=== PATIENT | female | born 1985 | race African-American/Black ===

== ENCOUNTER 2019-06-30 11:34 | Inpatient (IN) | payer OTHER ==
[2019-06-30 12:27] VITALS: BMI 21.2
--- NOTE | 2019-06-30 13:05 | HP ---
COWS - Scale Resting Pulse: 4= CT > 121 Sweatin=Flushed/Facial Moisture Restless Observation: 1= Difficult to Sit Still Pupil Size: 1= Pupils >than Normal Bone or Joint Aches: 2= Severe Diffuse Aches Runny Nose/ Eye Tearin= Nasal Congestion GI Upset > 30mins: 1= Stomach Cramp Tremor Observation: 1= Tremor [place], Not Seen Yawning Observation: 1= 1-2x During Session Anxiety or Irritability: 1=Feels Anxious/Irritable Goose Flesh Skin: 3=Piloerection COWS Score: 18 CIWA Score - Admission Criteria OASAS Guidelines: Admission for Medically Managed Detox: Requires at least one of the followin. CIWA greater than 12 2. Seizures within the past 24 hours 3. Delirium tremens within the past 24 hours 4. Hallucinations within the past 24 hours 5. Acute intervention needed for co occurring medical disorder 6. Acute intervention needed for co occurring psychiatric disorder 7. Severe withdrawal that cannot be handled at a lower level of care (continued vomiting, continued diarrhea, abnormal vital signs) requiring intravenous medication and/or fluids 8. Admitting History and Physical - Admission Chief Complaint: " I want to get my life back together again." History of Present Illness: 33 year old black female with opioid dependence with withdrawals. She was last here in 2013. She is using heroin intranasally up to $100 per day , last used yesterday. She also uses cocaine 5 times daily last used yesterday. She also uses marijuana 3 blunts per day, last used yesterday. PMH:None Psurg:None Psych: History of Depression and Schizophrenia History Source: Patient Limitations to Obtaining History: Intoxication - Past Medical History Psych: Yes: Depression, Schizophrenia - Past Surgical History Past Surgical History: Yes: None - Smoking History Smoking history: Current every day smoker Have you smoked in the past 12 months: Yes Aproximately how many cigarettes per day: 3 - Alcohol/Substance Use Hx Alcohol Use: Yes Admission ROS [facility] Allergies/Adverse Reactions: Allergies Allergy/AdvReac Type Severity Reaction Status Date / Time No Known Drug Allergies Allergy Verified 06/30/19 11:50 egg AdvReac Intermediate Nausea Verified 06/30/19 11:50 milk AdvReac Intermediate Nausea Verified 06/30/19 11:50 History of Present Illness: 33 year old black female with opioid dependence with withdrawals. She was last here in 2013. She is using heroin intranasally up to $100 per day , last used yesterday. She also uses cocaine 5 times daily last used yesterday. She also uses marijuana 3 blunts per day, last used yesterday. PMH:None Psurg:None Psych: History of Depression and Schizophrenia Exam Limitations: No Limitations - Ebola screening Have you traveled outside of the country in the last 21 days: No Have you had contact with anyone from an Ebola affected area: No Do you have a fever: No Patient History - Patient Medical History Hx Anemia: No Hx Asthma: No Hx Chronic Obstructive Pulmonary Disease (COPD): No Hx Cancer: No Hx Cardiac Disorders: No Hx Congestive Heart Failure: No Hx Hypertension: No Hx Hypercholesterolemia: No Hx Pacemaker: No HX Cerebrovascular Accident: No Hx Seizures: No Hx Dementia: No Hx Diabetes: No Hx Gastrointestinal Disorders: No Hx Genitourinary Disorders: No Hx Sexually Transmitted Disorders: No Hx Renal Disease (ESRD): No Hx Thyroid Disease: No Hx Human Immunodeficiency Virus (HIV): No (2012 last) Hx Hepatitis C: No Hx Depression: Yes Hx Suicide Attempt: No Hx Schizophrenia: Yes - Patient Surgical History Past Surgical History: No - PPD History Date: 01/08/14 - Smoking Cessation Smoking history: Current every day smoker Have you smoked in the past 12 months: Yes Aproximately how many cigarettes per day: 3 Cigars Per Day: 0 Hx Chewing Tobacco Use: No Initiated information on smoking cessation: Yes 'Breaking Loose' booklet given: 06/30/19 - Substances abused Crack Substance route: Smoking Frequency: Daily Amount used: $100 Age of first use: 27 Date of last use: 06/29/19 Heroin Substance route: Inhalation Frequency: Daily Amount used: $40-50 Age of first use: 31 Date of last use: 06/30/19 Admission Physical Exam BHS - Vital Signs Vital Signs: Vital Signs - 24 hr 06/30/19 11:52 Temperature 98.3 F Pulse Rate 133 H Respiratory 20 Rate Blood Pressure 161/131 H - Physical General Appearance: Yes: Moderate Distress, Sweating, Anxious HEENTM: Yes: EOMI, Hearing grossly Normal, Normal ENT Inspection, Normocephalic , Normal Voice, JOSEFINA, Pharynx Normal, Tm's normal Respiratory: Yes: Chest Non-Tender, Lungs Clear, Normal Breath Sounds, No Respiratory Distress, No Accessory Muscle Use Neck: Yes: No masses,lesions,Nodules, Trachea in good position Breast: Yes: Within Normal Limits, Axillae without masses, No Discharge, No masses Cardiology: Yes: Regular Rhythm, Regular Rate, S1, S2 Abdominal: Yes: Normal Bowel Sounds, Non Tender, Flat Genitourinary: Yes: Within Normal Limits Back: Yes: Normal Inspection Musculoskeletal: Yes: full range of Motion, Gait Steady Extremities: Yes: Normal Capillary Refill, Normal Inspection, Normal Range of Motion, Non-Tender Neurological: Yes: ophthalmic technician II-XII NML intact, Fully Oriented, Alert, Motor Strength 5/5, Normal Mood/Affect, Depressed Affect Integumentary: Yes: Normal Color, Warm Lymphatic: Yes: Within Normal Limits - Diagnostic (1) Alcohol dependence with uncomplicated withdrawal Current Visit: Yes Status: Acute (2) Asthma Current Visit: No Status: Acute (3) Cocaine dependence Current Visit: Yes Status: Acute (4) Depression Current Visit: Yes Status: Acute (5) Nicotine dependence Current Visit: Yes Status: Acute Screened but not Admitted - Documentation of Visit Screened but not Admitted: No Breathalyzer - Breathalyzer Breathalyzer: 0 Urine Drug Screen - Test Device Lot number: [id number] Expiration date: 02/28/21 - Control Is test valid?: Yes - Results Drug screen NEGATIVE: No Urine drug screen results: THC-Marijuana, SHERRON-Cocaine, MOP-Opiates Inpatient Rehab Admission - Rehab Decision to Admit Inpatient rehab admission?: No
[2019-06-30] MEDS ORDERED: cloNIDine HCL 0.1 MG TABLET PO PRN (13:07)
[2019-06-30] MEDS ORDERED: MAGNESIUM HYDROX 2400MG/30ML ORAL SUSPENSION 30 ML CUP PO PRN (13:07)
[2019-06-30] MEDS ORDERED: METHOCARBAMOL 500 MG TABLET PO PRN (13:07)
[2019-06-30] MEDS ORDERED: IBUPROFEN 400 MG TABLET (FP) PO PRN (13:07)
[2019-06-30] MEDS ORDERED: ACETAMINOPHEN 325 MG TABLET (FP) PO PRN ×2 (13:07)
[2019-06-30] MEDS ORDERED: BISMUTH SUBSALICYLATE 524 MG/30 ML UD PO PRN (13:07)
[2019-06-30] MEDS ORDERED: MAG HYDROX/AL HYDROX/SIMETH 30 ML UNIT-DOSE CUP PO PRN (13:07)
[2019-06-30] MEDS ORDERED: MAGNESIUM CITRATE 300 ML BOTTLE PO PRN (13:07)
[2019-06-30] MEDS ORDERED: hydrOXYzine PAMOATE 25 MG CAPSULE (FP) PO PRN (13:07)
[2019-06-30] MEDS ORDERED: MENTHOL/PHENOL 1 EACH UD MM PRN (13:07)
[2019-06-30] MEDS ORDERED: MELATONIN 5 MG TABLETS PO PRN (13:07)
[2019-06-30] MEDS ORDERED: HALOPERIDOL 5 MG TABLET (FP) PO PRN (13:57)
[2019-06-30] MEDS ORDERED: METHADONE HCL 10 MG TABLET (FOR DETOX USE ONLY) PO ONE (14:30)
[2019-06-30 17:53] LABS: HEMOGLOBIN 11.3 GM/dL (10.7-15.3); MCH 25.4 pg (25.7-33.7); MCHC 31.4 g/dl (32.0-36.0); RBC 4.45 M/mm3 (3.60-5.2); RDW 19.3 % (11.6-15.6); WHITE BLOOD COUNT 4.6 K/mm3 (4.0-10.0)
[2019-06-30 18:05] LABS: ALBUMIN 3.1 g/dl (3.4-5.0); BILIRUBIN,TOTAL 0.4 mg/dL (0.2-1); BLOOD UREA NITROGEN 11.2 mg/dL (7-18); CALCIUM 8.8 mg/dL (8.5-10.1); CREATININE 0.9 mg/dL (0.55-1.3); POTASSIUM 4.1 mmol/L (3.5-5.1); TOT PROT 6.8 g/dl (6.4-8.2)
[2019-06-30 20:12] LABS: MEAN PLT VOLUME 9.8 fl (7.5-11.1); PLATELET COUNT 281 K/MM3 (134-434)
[2019-06-30] MEDS ORDERED: QUEtiapine FUMARATE 200 MG TABLET PO SCH (22:00)
[2019-06-30] MEDS: THIAMINE HCL 100 MG TABLET (FP) PO SCH (22:28)
[2019-06-30] MEDS: DIVALPROEX SODIUM 250 MG TABLET E.C. PO SCH (22:28)
[2019-07-01] MEDS ORDERED: METHADONE HCL 5 MG TABLET (FOR DETOX USE ONLY) ONE (09:00)
[2019-07-01] MEDS ORDERED: METHADONE HCL 10 MG TABLET (FOR DETOX USE ONLY) ONE (09:00)
--- NOTE | 2019-07-01 09:26 | PN ---
BHS COWS - Scale Resting Pulse: 1= [place] 81-100 Sweatin= Chills/Flushing Restless Observation: 0= Sits Still Pupil Size: 1= Pupils >than Normal Bone or Joint Aches: 2= Severe Diffuse Aches Runny Nose/ Eye Tearin= Nasal Congestion GI Upset > 30mins: 1= Stomach Cramp Tremor Observation of Outstretched Hands: 2= Slight Tremor Visible Yawning Observation: 1= 1-2x During Session Anxiety or Irritability: 2=Irritable/Anxious Goose Flesh Skin: 3=Piloerection COWS Score: 15 BHS Progress Note (SOAP) Subjective: 33 years old female admitted on 06/30/19 for opiate withdrawal sx management treated with methadone detox regimen ate breakfast resting on bed discuss medication assisted treatment program Objective: 07/01/19 09:26 Vital Signs Temperature 98 F 07/01/19 06:30 Pulse Rate 81 07/01/19 06:30 Respiratory Rate 16 07/01/19 06:30 Blood Pressure 105/66 07/01/19 06:30 O2 Sat by Pulse Oximetry (%) Laboratory Last Values WBC 4.6 K/mm3 (4.0-10.0) 06/30/19 13:30 RBC 4.45 M/mm3 (3.60-5.2) 06/30/19 13:30 Hgb 11.3 GM/dL (10.7-15.3) 06/30/19 13:30 Hct 36.0 % (32.4-45.2) 06/30/19 13:30 MCV 81.0 fl (80-96) 06/30/19 13:30 MCH 25.4 pg (25.7-33.7) L D 06/30/19 13:30 MCHC 31.4 g/dl (32.0-36.0) L 06/30/19 13:30 RDW 19.3 % (11.6-15.6) H 06/30/19 13:30 Plt Count 281 K/MM3 (134-434) D 06/30/19 13:30 MPV 9.8 fl (7.5-11.1) 06/30/19 13:30 Platelet Comment Rare giant plts 06/30/19 13:30 Sodium 141 mmol/L (136-145) 06/30/19 13:30 Potassium 4.1 mmol/L (3.5-5.1) 06/30/19 13:30 Chloride 107 mmol/L (98-107) 06/30/19 13:30 Carbon Dioxide 27 mmol/L (21-32) 06/30/19 13:30 Anion Gap 6 MMOL/L (8-16) L 06/30/19 13:30 BUN 11.2 mg/dL (7-18) 06/30/19 13:30 Creatinine 0.9 mg/dL (0.55-1.3) 06/30/19 13:30 Est GFR (CKD-EPI)AfAm 98.75 06/30/19 13:30 Est GFR (CKD-EPI)NonAf 85.20 06/30/19 13:30 Random Glucose 94 mg/dL (74-106) 06/30/19 13:30 Calcium 8.8 mg/dL (8.5-10.1) 06/30/19 13:30 Total Bilirubin 0.4 mg/dL (0.2-1) 06/30/19 13:30 AST 21 U/L (15-37) 06/30/19 13:30 ALT 20 U/L (13-61) 06/30/19 13:30 Alkaline Phosphatase 85 U/L (45-117) 06/30/19 13:30 Total Protein 6.8 g/dl (6.4-8.2) 06/30/19 13:30 Albumin 3.1 g/dl (3.4-5.0) L 06/30/19 13:30 HIV 1&2 Antibody Screen Negative 06/30/19 14:00 HIV P24 Antigen Negative 06/30/19 14:00 lab noted Assessment: 07/01/19 09:26 opiate withdrawal sx Plan: continue methadone detox regimen pick alysa from pharmacy
[2019-07-01] MEDS ORDERED: BENZTROPINE MESYLATE 1 MG TABLET (FP) PO PRN (10:00)
[2019-07-01] MEDS ORDERED: METHADONE (DETOX) 20 MG, METHADONE (DETOX) 5 MG PO ONE (10:00)
[2019-07-01 11:44] LABS: RPR REACTIVE 1:1 (NONREACTIVE)
[2019-07-01] MEDS: PRENATAL VITAMINS W/ FOLIC ACID TABLET (FP) PO SCH (11:56)
[2019-07-01] MEDS: DIVALPROEX SODIUM 250 MG TABLET E.C. PO SCH ×2 (11:56→22:19)
[2019-07-01] MEDS: NICOTINE 14 MG/24 HOURS TOPICAL PATCH TD SCH (11:56)
[2019-07-01 15:37] LABS: TREPONEMA ANTIBODY REACTIVE (NONREACTIVE)
[2019-07-01] MEDS: THIAMINE HCL 100 MG TABLET (FP) PO SCH (22:19)
[2019-07-02] MEDS ORDERED: METHADONE HCL 10 MG TABLET (FOR DETOX USE ONLY) PO ONE (10:00)
[2019-07-02] MEDS: PRENATAL VITAMINS W/ FOLIC ACID TABLET (FP) PO SCH (10:13)
[2019-07-02] MEDS: DIVALPROEX SODIUM 250 MG TABLET E.C. PO SCH (10:13)
[2019-07-02] MEDS: NICOTINE 14 MG/24 HOURS TOPICAL PATCH TD SCH (10:14)
--- NOTE | 2019-07-02 10:34 | PN ---
BHS COWS - Scale Resting Pulse: 1= [place] 81-100 Sweatin= Chills/Flushing Restless Observation: 1= Difficult to Sit Still Pupil Size: 1= Pupils >than Normal Bone or Joint Aches: 1= Mild Discomfort Runny Nose/ Eye Tearin= Nasal Congestion GI Upset > 30mins: 1= Stomach Cramp Tremor Observation of Outstretched Hands: 1= Tremor [place], Not Seen Yawning Observation: 0= None Anxiety or Irritability: 1=Feels Anxious/Irritable Goose Flesh Skin: 0=Smooth Skin COWS Score: 9 BHS Progress Note (SOAP) Subjective: interrupted sleep, sweats, shakes Objective: 07/02/19 10:32 Vital Signs Temperature 98.0 F 07/02/19 09:21 Pulse Rate 87 07/02/19 09:21 Respiratory Rate 18 07/02/19 09:21 Blood Pressure 105/56 L 07/02/19 09:21 O2 Sat by Pulse Oximetry (%) Laboratory Tests 06/30/19 06/30/19 06/30/19 13:30 13:30 13:30 WBC 4.6 RBC 4.45 Hgb 11.3 Hct 36.0 MCV 81.0 MCH 25.4 L D MCHC 31.4 L RDW 19.3 H Plt Count 281 D MPV 9.8 Platelet Comment Rare giant plts Sodium 141 Potassium 4.1 Chloride 107 Carbon Dioxide 27 Anion Gap 6 L BUN 11.2 Creatinine 0.9 Est GFR (CKD-EPI)AfAm 98.75 Est GFR (CKD-EPI)NonAf 85.20 Random Glucose 94 Calcium 8.8 Total Bilirubin 0.4 AST 21 ALT 20 Alkaline Phosphatase 85 Total Protein 6.8 Albumin 3.1 L RPR Titer Reactive 1:1 H D T.pallidum Ab (MHA) Reactive HIV 1&2 Antibody Screen HIV P24 Antigen 06/30/19 14:00 WBC RBC Hgb Hct MCV MCH MCHC RDW Plt Count MPV Platelet Comment Sodium Potassium Chloride Carbon Dioxide Anion Gap BUN Creatinine Est GFR (CKD-EPI)AfAm Est GFR (CKD-EPI)NonAf Random Glucose Calcium Total Bilirubin AST ALT Alkaline Phosphatase Total Protein Albumin RPR Titer T.pallidum Ab (MHA) HIV 1&2 Antibody Screen Negative HIV P24 Antigen Negative Pt aox3 in nad lying in bed ,cooperative Assessment: 07/02/19 10:33 withdrawal sx's Plan: cont. detox increase fluids rest
[2019-07-02 13:52] VITALS: BP 100/59; PULSE 84; TEMP 97.1
--- NOTE | 2019-07-02 16:57 | PN ---
[facility] Progress Note Note: patient did not want to complete treatment,risk of high risk relapsing explained ,understood, signed release ama,advise to call 911 if not feeling well
--- NOTE | 2019-07-02 17:02 | DS ---
[facility] Detox Discharge Summary Admission Date: 06/30/19 Discharge Date: 07/02/19 - History Present History: Cocaine Dependence, Opioid Dependence Additional Comments: patient signed release ama,all attempts to convince patient to stay with no avail, advise to call 911 if not feeling well - Physical Exam Results Vital Signs: Vital Signs Temperature 97.1 F L 07/02/19 13:51 Pulse Rate 84 07/02/19 13:51 Respiratory Rate 18 07/02/19 13:51 Blood Pressure 100/59 L 07/02/19 13:51 O2 Sat by Pulse Oximetry (%) Pertinent Admission Physical Exam Findings: withdrawal signs and symptom Laboratory Last Values WBC 4.6 K/mm3 (4.0-10.0) 06/30/19 13:30 RBC 4.45 M/mm3 (3.60-5.2) 06/30/19 13:30 Hgb 11.3 GM/dL (10.7-15.3) 06/30/19 13:30 Hct 36.0 % (32.4-45.2) 06/30/19 13:30 MCV 81.0 fl (80-96) 06/30/19 13:30 MCH 25.4 pg (25.7-33.7) L D 06/30/19 13:30 MCHC 31.4 g/dl (32.0-36.0) L 06/30/19 13:30 RDW 19.3 % (11.6-15.6) H 06/30/19 13:30 Plt Count 281 K/MM3 (134-434) D 06/30/19 13:30 MPV 9.8 fl (7.5-11.1) 06/30/19 13:30 Platelet Comment Rare giant plts 06/30/19 13:30 Sodium 141 mmol/L (136-145) 06/30/19 13:30 Potassium 4.1 mmol/L (3.5-5.1) 06/30/19 13:30 Chloride 107 mmol/L (98-107) 06/30/19 13:30 Carbon Dioxide 27 mmol/L (21-32) 06/30/19 13:30 Anion Gap 6 MMOL/L (8-16) L 06/30/19 13:30 BUN 11.2 mg/dL (7-18) 06/30/19 13:30 Creatinine 0.9 mg/dL (0.55-1.3) 06/30/19 13:30 Est GFR (CKD-EPI)AfAm 98.75 06/30/19 13:30 Est GFR (CKD-EPI)NonAf 85.20 06/30/19 13:30 Random Glucose 94 mg/dL (74-106) 06/30/19 13:30 Calcium 8.8 mg/dL (8.5-10.1) 06/30/19 13:30 Total Bilirubin 0.4 mg/dL (0.2-1) 06/30/19 13:30 AST 21 U/L (15-37) 06/30/19 13:30 ALT 20 U/L (13-61) 06/30/19 13:30 Alkaline Phosphatase 85 U/L (45-117) 06/30/19 13:30 Total Protein 6.8 g/dl (6.4-8.2) 06/30/19 13:30 Albumin 3.1 g/dl (3.4-5.0) L 06/30/19 13:30 RPR Titer Reactive 1:1 (NONREACTIVE) H D 06/30/19 13:30 T.pallidum Ab (MHA) Reactive (NONREACTIVE) 06/30/19 13:30 HIV 1&2 Antibody Screen Negative 06/30/19 14:00 HIV P24 Antigen Negative 06/30/19 14:00 - Medication Discharge Medications: Ambulatory Orders Benztropine Mesylate [Cogentin -] 1 mg PO DAILY #30 tablet 02/01/14 Divalproex [Depakote -] 250 mg PO BID #60 tablet. 02/01/14 Haloperidol [Haldol -] 5 mg PO TID PRN #90 tablet 02/01/14 Quetiapine Fumarate [Seroquel] 100 mg PO HS #30 tablet 02/01/14 Naloxone HCl [Narcan] 4 mg NS ASDIR PRN #1 spray 07/01/19 - Diagnosis (1) Opioid dependence with withdrawal Current Visit: Yes Status: Acute (2) Cocaine dependence Current Visit: Yes Status: Acute (3) Nicotine dependence Current Visit: Yes Status: Acute - AMA Did Patient Leave Against Medical Advice: Yes
[2019-07-03] MEDS ORDERED: METHADONE (DETOX) 10 MG, METHADONE (DETOX) 5 MG PO ONE (10:00)
[2019-07-04] MEDS ORDERED: METHADONE HCL 10 MG TABLET (FOR DETOX USE ONLY) PO ONE (10:00)
[2019-07-05] MEDS ORDERED: METHADONE HCL 5 MG TABLET (FOR DETOX USE ONLY) PO ONE (06:00)
== END 2019-07-02 17:09 | disposition left against medical advice (07) | DRG 770 ==
LOC: YASAS 11:34 → Y3N 13:38
PROVIDERS: ADMIT Allergy & Immunology; ATTEND Allergy & Immunology
PROC: HZ2ZZZZ Detoxification Services for Substance Abuse Treatment (ICD-10-PCS; principal; 2019-06-30)
DX: F11.23 Opioid dependence with withdrawal (principal); F14.20 Cocaine dependence, uncomplicated; F17.210 Nicotine dependence, cigarettes, uncomplicated; F32.9 Major depressive disorder, single episode, unspecified; J45.909 Unspecified asthma, uncomplicated; Z91.011 Allergy to milk products; Z91.012 Allergy to eggs
CPT/HCPCS: 36415; 80053; 85027; 86593; 86780; 87389

== ENCOUNTER 2019-07-21 15:25 | Inpatient (IN) | payer OTHER ==
[2019-07-21 18:53] VITALS: BMI 22.3
--- NOTE | 2019-07-21 20:44 | HP ---
COWS - Scale Resting Pulse: 1= [place] 81-100 Sweatin= Chills/Flushing Restless Observation: 1= Difficult to Sit Still Pupil Size: 1= Pupils >than Normal Bone or Joint Aches: 2= Severe Diffuse Aches Runny Nose/ Eye Tearin= Runny Nose/Eyes GI Upset > 30mins: 1= Stomach Cramp Tremor Observation: 1= Tremor [place], Not Seen Yawning Observation: 1= 1-2x During Session Anxiety or Irritability: 1=Feels Anxious/Irritable Goose Flesh Skin: 0=Smooth Skin COWS Score: 12 CIWA Score - Admission Criteria OASAS Guidelines: Admission for Medically Managed Detox: Requires at least one of the followin. CIWA greater than 12 2. Seizures within the past 24 hours 3. Delirium tremens within the past 24 hours 4. Hallucinations within the past 24 hours 5. Acute intervention needed for co occurring medical disorder 6. Acute intervention needed for co occurring psychiatric disorder 7. Severe withdrawal that cannot be handled at a lower level of care (continued vomiting, continued diarrhea, abnormal vital signs) requiring intravenous medication and/or fluids 8. Admitting History and Physical - Past Medical History ...LMP: 06/25/19 Psych: Yes: Depression, Schizophrenia - Past Surgical History Past Surgical History: Yes: None - Smoking History Smoking history: Current every day smoker Have you smoked in the past 12 months: Yes Aproximately how many cigarettes per day: 4 - Alcohol/Substance Use Hx Alcohol Use: Yes Admission [facility] Chief Complaint: heroin detox Allergies/Adverse Reactions: Allergies Allergy/AdvReac Type Severity Reaction Status Date / Time No Known Drug Allergies Allergy Verified 07/21/19 18:37 egg AdvReac Intermediate Nausea Verified 07/21/19 18:37 milk AdvReac Intermediate Nausea Verified 07/21/19 18:37 History of Present Illness: 33 yo h/o schizophrenia, bipolar- not taking meds- left detox here about 3 weeks ago, states she was partying and did not feel good so went to [facility] yesterday. 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 Lives in a house with a friend Heroin- uses 4 bags/day, IH, denies OD Cocaine- $100/day Occ alcohol use DUR- no controlled substances - Ebola screening Have you traveled outside of the country in the last 21 days: No Have you had contact with anyone from an Ebola affected area: No Do you have a fever: No Patient History - Patient Medical History Hx Anemia: No Hx Asthma: Yes Hx Chronic Obstructive Pulmonary Disease (COPD): No Hx Cancer: No Hx Cardiac Disorders: No Hx Congestive Heart Failure: No Hx Hypertension: Yes Hx Hypercholesterolemia: No Hx Pacemaker: No HX Cerebrovascular Accident: No Hx Seizures: No Hx Dementia: No Hx Diabetes: No Hx Gastrointestinal Disorders: No Hx Genitourinary Disorders: No Hx Sexually Transmitted Disorders: No Hx Renal Disease (ESRD): No Hx Thyroid Disease: No Hx Human Immunodeficiency Virus (HIV): No (2012 last) Hx Hepatitis C: No Hx Depression: Yes Hx Suicide Attempt: No Hx Schizophrenia: Yes - Patient Surgical History Past Surgical History: No - PPD History Date: 07/02/19 - Reproductive History Last Menstrual Period: 06/25/19 - Smoking Cessation Smoking history: Current every day smoker Have you smoked in the past 12 months: Yes Aproximately how many cigarettes per day: 4 Cigars Per Day: 0 Hx Chewing Tobacco Use: No Initiated information on smoking cessation: Yes 'Breaking Loose' booklet given: 07/21/19 - Substances abused Crack Substance route: Smoking Frequency: Daily Amount used: $100 Age of first use: 27 Date of last use: 07/20/19 Heroin Substance route: Inhalation Frequency: Daily Amount used: $40-50 Age of first use: 31 Date of last use: 07/21/19 Alcohol Substance route: Oral Frequency: Daily Amount used: 2 bottles of vodka. Age of first use: 19 Date of last use: 07/21/19 Admission Physical Exam S - Vital Signs Vital Signs: Vital Signs - 24 hr 07/21/19 18:43 Temperature 97.2 F L Pulse Rate 105 H Respiratory 16 Rate Blood Pressure 130/75 Breathalyzer - Breathalyzer Breathalyzer: 0 Urine Drug Screen - Test Device Lot number: [id number] Expiration date: 02/28/21 - Control Is test valid?: Yes - Results Drug screen NEGATIVE: No Urine drug screen results: SHERRON-Cocaine, FEN-Fentanyl Inpatient Rehab Admission - Rehab Decision to Admit Inpatient rehab admission?: No
[2019-07-21] MEDS ORDERED: MENTHOL/PHENOL 1 EACH UD MM PRN (20:50)
[2019-07-21] MEDS ORDERED: MAG HYDROX/AL HYDROX/SIMETH 30 ML UNIT-DOSE CUP PO PRN (20:50)
[2019-07-21] MEDS ORDERED: IBUPROFEN 400 MG TABLET (FP) PO PRN (20:50)
[2019-07-21] MEDS ORDERED: hydrOXYzine PAMOATE 25 MG CAPSULE (FP) PO PRN (20:50)
[2019-07-21] MEDS ORDERED: METHADONE HCL 10 MG TABLET (FOR DETOX USE ONLY) PO ONE (20:50)
[2019-07-21] MEDS ORDERED: ACETAMINOPHEN 325 MG TABLET (FP) PO PRN ×2 (20:50)
[2019-07-21] MEDS ORDERED: METHOCARBAMOL 500 MG TABLET PO PRN (20:50)
[2019-07-21] MEDS ORDERED: BISMUTH SUBSALICYLATE 524 MG/30 ML UD PO PRN (20:50)
[2019-07-21] MEDS ORDERED: MAGNESIUM CITRATE 300 ML BOTTLE PO PRN (20:50)
[2019-07-21] MEDS ORDERED: MELATONIN 5 MG TABLETS PO PRN (20:50)
[2019-07-21] MEDS ORDERED: NALOXONE HCL 0.4 MG/ML VIAL IM PRN (20:50)
[2019-07-21] MEDS ORDERED: ONDANSETRON *ODT* 4 MG TABLET SL PRN (20:50)
[2019-07-21] MEDS ORDERED: NICOTINE POLACRILEX 2 MG GUM BUC PRN (20:50)
[2019-07-21] MEDS ORDERED: cloNIDine HCL 0.1 MG TABLET PO PRN (20:50)
[2019-07-21] MEDS ORDERED: MAGNESIUM HYDROX 2400MG/30ML ORAL SUSPENSION 30 ML CUP PO PRN (20:50)
[2019-07-21] MEDS: THIAMINE HCL 100 MG TABLET (FP) PO SCH (23:03)
[2019-07-22 09:34] LABS: HEMATOCRIT 33.8 % (32.4-45.2); HEMOGLOBIN 11.1 GM/dL (10.7-15.3); MCH 26.4 pg (25.7-33.7); MCHC 32.7 g/dl (32.0-36.0); MEAN CELL VOLUME 80.6 fl (80-96); MEAN PLT VOLUME 9.7 fl (7.5-11.1); PLATELET COUNT 207 K/MM3 (134-434); RBC 4.19 M/mm3 (3.60-5.2); WHITE BLOOD COUNT 3.8 K/mm3 (4.0-10.0)
[2019-07-22 09:50] LABS: BILIRUBIN,TOTAL 0.2 mg/dL (0.2-1); BLOOD UREA NITROGEN 11.9 mg/dL (7-18); CALCIUM 8.8 mg/dL (8.5-10.1); CREATININE 0.7 mg/dL (0.55-1.3); POTASSIUM 4.2 mmol/L (3.5-5.1); TOT PROT 6.5 g/dl (6.4-8.2)
[2019-07-22] MEDS ORDERED: METHADONE HCL 5 MG TABLET (FOR DETOX USE ONLY) PO ONE (10:00)
[2019-07-22] MEDS: PRENATAL VITAMINS W/ FOLIC ACID TABLET (FP) PO SCH (10:29)
--- NOTE | 2019-07-22 11:51 | PN ---
BHS COWS - Scale Resting Pulse: 1= [place] 81-100 Sweatin= Chills/Flushing Restless Observation: 1= Difficult to Sit Still Pupil Size: 0= Normal to Room Light Bone or Joint Aches: 1= Mild Discomfort Runny Nose/ Eye Tearin= Nasal Congestion GI Upset > 30mins: 0= None Tremor Observation of Outstretched Hands: 1= Tremor [place], Not Seen Yawning Observation: 1= 1-2x During Session Anxiety or Irritability: 2=Irritable/Anxious Goose Flesh Skin: 0=Smooth Skin COWS Score: 9 BHS Progress Note (SOAP) Subjective: sweats shakes chills body aches Objective: 07/22/19 11:51 Vital Signs Temperature 97.5 F L 07/22/19 10:00 Pulse Rate 87 07/22/19 10:00 Respiratory Rate 18 07/22/19 10:00 Blood Pressure 115/65 07/22/19 10:00 O2 Sat by Pulse Oximetry (%) Laboratory Tests 07/21/19 07/22/19 07/22/19 22:31 08:00 08:00 WBC 3.8 L RBC 4.19 Hgb 11.1 Hct 33.8 MCV 80.6 MCH 26.4 MCHC 32.7 RDW 19.0 H Plt Count 207 D MPV 9.7 Sodium 139 Potassium 4.2 Chloride 108 H Carbon Dioxide 27 Anion Gap 4 L BUN 11.9 Creatinine 0.7 Est GFR (CKD-EPI)AfAm 133.81 Est GFR (CKD-EPI)NonAf 115.45 Random Glucose 81 Calcium 8.8 Total Bilirubin 0.2 AST 13 L ALT 16 Alkaline Phosphatase 66 Total Protein 6.5 Albumin 3.0 L POC Urine HCG, Qual Negative labs noted aaox3 ambulating no acute distress Assessment: 07/22/19 11:51 withdrawal sx Plan: continue detox increase fluids
[2019-07-22] MEDS ORDERED: FLU VACCINE QUAD 60 MCG/0.5 ML (MDV 19-20) IM ONE (12:00)
--- NOTE | 2019-07-22 16:29 | CONSULT ---
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 Patient admitted to for alcohol and cocaine dependence. Substance Abuse History: Smoking Cessation. Smoking history: Current every day smoker. Have you smoked in the past 12 months: Yes. Aproximately how many cigarettes per day: 4. Cigars Per Day: 0. Hx Chewing Tobacco Use: No. Initiated information on smoking cessation: Yes. 'Breaking Loose' booklet given : 07/21/19. - Substances abused. Crack. Substance route: Smoking. Frequency: Daily. Amount used: $100. Age of first use: 27. Date of last use: 07/20/19. Heroin. Substance route: Inhalation. Frequency: Daily. Amount used: $40-50. Age of first use: 31. Date of last use: 07/21/19. Alcohol. Substance route: Oral. Frequency: Daily. Amount used: 2 bottles of vodka. Age of first use: 19. Date of last use: 07/21/19 Medical History: Asthma, hypertension Psychiatric History: Patient unable to provide a cohesive psychiatric history. Ms. Escobar reports a history of multiple psychiatric hospitalizations although is unable to recall the names of the facilities. Patient unable to recall medications prescribed. Patient presents as sad, guarded and not willing to speak much. As per previous notes, patient has been been prescribed risperdal consta 25mg , cogentin 1mg daily depakote 250mg BID and seroquel 100mg HS. History of bipolar disorder vs schizophrenia?? Patient is not under the care of a psychiatric provider. Denies currently taking medications. Patient currently denies auditoy/visual hallucinations and suicidal/homicidal ideation. Physical/Sexual Abuse/Trauma History: denies. Mental Status Exam - Mental Status Exam Alert and Oriented to: Time, Place, Person Cognitive Function: Good Patient Appearance: Well Groomed Mood: Sad, Withdrawn Affect: Mood Congruent Patient Behavior: Fatigued, Guarded Speech Pattern: Delayed Voice Loudness: Moderately Soft/Quiet Thought Process: Goal Oriented Thought Disorder: Not Present Hallucinations: Denies Suicidal Ideation: Denies Homicidal Ideation: Denies Insight/Judgement: Poor Sleep: Poorly Appetite: Fair Muscle strength/Tone: Normal Gait/Station: Other (Did not observe gait.) Psychiatric Findings - Problem List ([place] 1, 2,3) (1) Substance induced mood disorder Current Visit: Yes Status: Acute (2) Alcohol dependence Current Visit: Yes Status: Acute (3) Cocaine dependence Current Visit: Yes Status: Acute (4) Schizophrenia Current Visit: Yes Status: Suspected - Initial Treatment Plan Initial Treatment Plan: Psychoeducation provided. Detoxification in progress. Will order Risperdal 1mg BID + Cogentin 0.5mg BID PRN. Benefits and side effects discussed. Verbal consent given.
[2019-07-22] MEDS ORDERED: BENZTROPINE MESYLATE 1 MG TABLET (FP) PO PRN (16:37)
[2019-07-22] MEDS: risperiDONE 1 MG TABLET (FP) PO SCH (23:48)
[2019-07-22] MEDS: THIAMINE HCL 100 MG TABLET (FP) PO SCH (23:49)
--- NOTE | 2019-07-23 09:43 | PN ---
BHS COWS - Scale Resting Pulse: 1= [place] 81-100 Sweatin= Chills/Flushing Restless Observation: 1= Difficult to Sit Still Pupil Size: 0= Normal to Room Light Bone or Joint Aches: 1= Mild Discomfort Runny Nose/ Eye Tearin= Nasal Congestion GI Upset > 30mins: 0= None Tremor Observation of Outstretched Hands: 0= None Yawning Observation: 0= None Anxiety or Irritability: 1=Feels Anxious/Irritable Goose Flesh Skin: 0=Smooth Skin COWS Score: 6 BHS Progress Note (SOAP) Subjective: Patient has only mild complaints of withdrawals with no other needs. Objective: 07/23/19 09:40 BP: 104/58 P:82 R:16 T: 97.7 Alert in bed in no acute distress. Cor: S1 S2 Lungs: Clear to Auscultation and percussion Abd: Hyperactive bowel sounds, no guarding or rebound tenderness. Ext: Normal pulses, warm, dry. Assessment: Detox proceeding well and patient progressing well with no abnormal discomfort. 07/23/19 09:41 07/23/19 09:42 Plan: 1. Opioid Dependence with withdrawals. Continue detox. Increase PO Fluids Noted minor abnormalities in labs consistent with condition of withdrawals. Continue to monitor patient. Dr. Boyd
[2019-07-23] MEDS ORDERED: METHADONE HCL 10 MG TABLET (FOR DETOX USE ONLY) PO ONE (10:00)
[2019-07-23] MEDS: PRENATAL VITAMINS W/ FOLIC ACID TABLET (FP) PO SCH (10:42)
[2019-07-23] MEDS: risperiDONE 1 MG TABLET (FP) PO SCH ×2 (10:42→22:07)
[2019-07-23] MEDS: THIAMINE HCL 100 MG TABLET (FP) PO SCH (22:07)
[2019-07-24] MEDS ORDERED: METHADONE HCL 5 MG TABLET (FOR DETOX USE ONLY) PO ONE (06:00)
[2019-07-24 09:12] VITALS: BP 118/61; PULSE 104; TEMP 98.2
--- NOTE | 2019-07-24 18:21 | DS ---
[facility] Detox Discharge Summary Admission Date: 07/21/19 Discharge Date: 07/24/19 - History Present History: Alcohol Dependence, Cocaine Dependence, Opioid Dependence Additional Comments: Patient returning home for time being, will consider admission [facility] ([place], [place]) for a later date. Patient also advised to consider local 12-Step / NA / AA Outpatient Support groups for aftercare. Patient verbalized understanding of recommendation. Patient was discharged from Detox Unit in stable medical condition. Pertinent Past History: Asthma, HTN, Depression, Schizophrenia, Nicotine Dependence. - Physical Exam Results Vital Signs: Vital Signs Temperature 98.2 F 07/24/19 09:11 Pulse Rate 104 H 07/24/19 09:11 Respiratory Rate 18 07/24/19 09:11 Blood Pressure 118/61 07/24/19 09:11 O2 Sat by Pulse Oximetry (%) Pertinent Admission Physical Exam Findings: WITHDRAWAL SYMPTOMS. Laboratory Tests 07/21/19 07/22/19 07/22/19 22:31 08:00 08:00 WBC 3.8 L RBC 4.19 Hgb 11.1 Hct 33.8 MCV 80.6 MCH 26.4 MCHC 32.7 RDW 19.0 H Plt Count 207 D MPV 9.7 Sodium 139 Potassium 4.2 Chloride 108 H Carbon Dioxide 27 Anion Gap 4 L BUN 11.9 Creatinine 0.7 Est GFR (CKD-EPI)AfAm 133.81 Est GFR (CKD-EPI)NonAf 115.45 Random Glucose 81 Calcium 8.8 Total Bilirubin 0.2 AST 13 L ALT 16 Alkaline Phosphatase 66 Total Protein 6.5 Albumin 3.0 L POC Urine HCG, Qual Negative LABS NOTED. - Treatment Hospital Course: Detox Protocol Followed, Detoxed Safely, Responded well, Discharged Condition Good Patient has Accepted a Rehab Referral to: PATIENT RETURNING HOME, WILL CONSIDER REHAB ADMISSION FOR A LATER DATE. - Medication Discharge Medications: Ambulatory Orders Benztropine Mesylate [Cogentin -] 1 mg PO DAILY #30 tablet 02/01/14 Divalproex [Depakote -] 250 mg PO BID #60 tablet. 02/01/14 Haloperidol [Haldol -] 5 mg PO TID PRN #90 tablet 02/01/14 Quetiapine Fumarate [Seroquel] 100 mg PO HS #30 tablet 02/01/14 Naloxone HCl [Narcan] 4 mg NS ASDIR PRN #1 spray 07/01/19 - Diagnosis (1) Cocaine dependence Status: Acute Qualifiers: Substance use status: in withdrawal Qualified Code(s): F14.23 - Cocaine dependence with withdrawal (2) Nicotine dependence Status: Acute Qualifiers: Nicotine product type: cigarettes Substance use status: uncomplicated Qualified Code(s): F17.210 - Nicotine dependence, cigarettes, uncomplicated (3) Substance induced mood disorder Status: Acute (4) Alcohol dependence Status: Acute Qualifiers: Substance use status: in withdrawal Complication of substance-induced condition: uncomplicated Qualified Code(s): F10.230 - Alcohol dependence with withdrawal, uncomplicated - AMA Did Patient Leave Against Medical Advice: No
== END 2019-07-24 10:27 | disposition home or self-care (01) | DRG 773 ==
LOC: YASAS 15:25 → Y6N 22:29
PROVIDERS: ADMIT Allergy & Immunology; ATTEND Allergy & Immunology
PROC: HZ2ZZZZ Detoxification Services for Substance Abuse Treatment (ICD-10-PCS; principal; 2019-07-21)
DX: F11.23 Opioid dependence with withdrawal (principal); F10.230 Alcohol dependence with withdrawal, uncomplicated; F14.20 Cocaine dependence, uncomplicated; F17.210 Nicotine dependence, cigarettes, uncomplicated; F19.24 Other psychoactive substance dependence with psychoactive substance-induced mood disorder; F20.9 Schizophrenia, unspecified; F31.9 Bipolar disorder, unspecified; I10 Essential (primary) hypertension; J45.909 Unspecified asthma, uncomplicated
CPT/HCPCS: 36415; 80053; 81025; 85027; J2794; Q2036